=== PATIENT | male | born 1985 | race Caucasian/White ===

== ENCOUNTER 2022-01-08 19:54 | Emergency (ER) | payer BC ==
[2022-01-08] MEDS ORDERED: Tetracaine HCl/PF 0.5% 4 ML Bottle EYEBOTH ONE (20:05)
[2022-01-08] MEDS ORDERED: Erythromycin Base 0.5% Ophth Oint 1 GM Tube EYEBOTH ONE (20:25)
== END 2022-01-08 21:02 | disposition home or self-care (01) ==
LOC: MW.ED 19:54
DX: T15.91XA Foreign body on external eye, part unspecified, right eye, initial encounter (principal); Z91.048 Other nonmedicinal substance allergy status
CPT/HCPCS: 65205; 99282; 99283; A9270-GY

== ENCOUNTER 2022-12-17 17:53 | Emergency (ER) | payer OTHER, BC ==
[2022-12-17] MEDS ORDERED: Octyl 2-Cyanoacrylate 1 g/1 mL 1 APPLIC PEN TOP STA (19:04)
[2022-12-17] MEDS ORDERED: Diphtheria,Pertussis(Acell),Tetanus Vaccine 0.5 ML Syringe IM ONE (19:04)
== END 2022-12-17 19:34 | disposition home or self-care (01) ==
LOC: MW.ED 17:53
DX: S01.83XA Puncture wound without foreign body of other part of head, initial encounter (principal); S01.01XA Laceration without foreign body of scalp, initial encounter; Z23 Encounter for immunization; Z91.048 Other nonmedicinal substance allergy status; W26.8XXA Contact with other sharp object(s), not elsewhere classified, initial encounter
CPT/HCPCS: 12011; 90471; 90715; 99283; A9270